=== PATIENT | female | born 1990 | race Caucasian/White ===

== ENCOUNTER 2019-04-21 16:34 | Emergency (ER) | payer OTHER, MEDICAID ==
[~2019-04-21] VITALS: Ht 139.7 cm; Wt 49.9 kg
[~2019-04-21 16:34] MED LIST: AMOXICILLIN 50500 MG PO; AUGMENTIN 875875 MG PO; CIPROFLOXACIN500 M1 PO; CIPROFLOXACIN500 M3; IBUPROFEN 400400 M1; NAPROSYN500 MG PO; NOHOMEMEDICATIONS; NORCO 5-325 TA1 EACH PO; PYRIDIUM200 MG PO; STERILE SALINE126 ML NS; TAMIFLU75 MG PO; TRINATE TABLET1 TAB PO; ZPAK PO
[2019-04-21 17:15] LABS: URINE BILIRUBIN NEGATIVE (Negative); URINE BLOOD 3+ (Negative); URINE CLARITY CLEAR; URINE COLOR YELLOW; URINE GLUCOSE-RANDOM NEGATIVE (Negative); URINE KETONES NEGATIVE (Negative); URINE LEUKOCYTES-REFLEX TRACE (Negative); URINE NITRITE-REFLEX NEGATIVE (Negative); URINE PROTEIN 2+ (Negative); URINE SPECIFIC GRAVITY >= 1.030 (1.005-1.030)
[2019-04-21] MEDS ORDERED: DOXYCYCLINE 10100 MG PO (17:28)
[2019-04-21] MEDS ORDERED: MEDROLDOSEPACK PO (17:28)
[2019-04-21 17:29] LABS: SQUAMOUS >10 Many /LPF (0-3)
[2019-04-21 17:31] LABS: CALCIUM OXALATE 0-3 Few /LPF (None Seen); CASTS None Seen /LPF (None Seen); URINE RBC 3-10 Few /HPF (0-2); URINE WBC-REFLEX >25 Many /HPF (0-5)
[2019-04-21 17:32] LABS: BACTERIA-REFLEX 1-9 Few /HPF (None Seen); MUCUS None Seen strn/LPF (None Seen)
[2019-04-21 17:42] VITALS: BP 130/90
== END 2019-04-21 17:43 | disposition home or self-care (01) ==
LOC: M.ERS 16:34
PROVIDERS: Nurse Practitioner Family
DX: N72 Inflammatory disease of cervix uteri (principal); N73.9 Female pelvic inflammatory disease, unspecified; L25.9 Unspecified contact dermatitis, unspecified cause; F17.210 Nicotine dependence, cigarettes, uncomplicated

== ENCOUNTER 2019-08-01 20:24 | Emergency (ER) | payer OTHER, MEDICAID ==
[~2019-08-01] VITALS: Ht 139.7 cm; Wt 52.2 kg
[~2019-08-01 20:24] MED LIST changes: +DOXYCYCLINE 10100 MG PO; +MEDROLDOSEPACK PO
[2019-08-01] MEDS ORDERED: BACTRIM DS TAB1 EACH PO (20:58)
[2019-08-01 21:05] VITALS: BP 120/80
== END 2019-08-01 21:06 | disposition home or self-care (01) ==
LOC: M.ERS 20:24
DX: B95.62 Methicillin resistant Staphylococcus aureus infection as the cause of diseases classified elsewhere (principal); F17.210 Nicotine dependence, cigarettes, uncomplicated

== ENCOUNTER 2020-04-28 20:09 | Emergency (ER) | payer OTHER, MEDICAID ==
[~2020-04-28] VITALS: Ht 139.7 cm; Wt 52.2 kg
[~2020-04-28 20:09] MED LIST changes: +BACTRIM DS TAB1 EACH PO
[2020-04-28] MEDS ORDERED: BACTRIM DS TAB1 EACH PO (21:07)
[2020-04-28 21:13] VITALS: BP 116/73
== END 2020-04-28 21:14 | disposition home or self-care (01) ==
LOC: M.ERS 20:09
DX: L03.311 Cellulitis of abdominal wall (principal); F17.210 Nicotine dependence, cigarettes, uncomplicated; Z90.49 Acquired absence of other specified parts of digestive tract

== ENCOUNTER 2021-06-19 19:46 | Emergency (ER) | payer OTHER, MEDICAID ==
[~2021-06-19] VITALS: Ht 139.7 cm; Wt 53.5 kg
[2021-06-19 20:10] LABS: URINE BILIRUBIN NEGATIVE (Negative); URINE BLOOD TRACE (Negative); URINE CLARITY CLEAR; URINE COLOR YELLOW; URINE GLUCOSE-RANDOM NEGATIVE (Negative); URINE KETONES NEGATIVE (Negative); URINE LEUKOCYTES-REFLEX 1+ (Negative); URINE NITRITE-REFLEX NEGATIVE (Negative); URINE PROTEIN NEGATIVE (Negative); URINE UROBILINOGEN 0.2 E.U./dl (0.2-1.0)
[2021-06-19] MEDS ORDERED: SUPRAX400 M1 PO (20:17)
[2021-06-19] MEDS ORDERED: PYRIDIUM100 M1 PO (20:17)
[2021-06-19] MEDS ORDERED: DOXYCYCLINE 10100 MG PO (20:17)
[2021-06-19 20:20] LABS: MUCUS None Seen strn/LPF (None Seen); SQUAMOUS >10 Many /LPF (0-3)
[2021-06-19 20:21] LABS: BACTERIA-REFLEX 1-9 Few /HPF (None Seen); CASTS None Seen /LPF (None Seen); CRYSTALS None Seen /LPF (None Seen); URINE WBC-REFLEX 6-15 Few /HPF (0-5)
[2021-06-19 20:22] LABS: URINE RBC 0-2 Rare /HPF (0-2)
[2021-06-19 20:53] VITALS: BP 115/61
== END 2021-06-19 20:54 | disposition home or self-care (01) ==
LOC: M.ERS 19:46
PROVIDERS: Nurse Practitioner Family
DX: N39.0 Urinary tract infection, site not specified (principal); A59.9 Trichomoniasis, unspecified; F17.210 Nicotine dependence, cigarettes, uncomplicated; Z98.890 Other specified postprocedural states; Z90.49 Acquired absence of other specified parts of digestive tract